=== PATIENT | male | born 1985 ===

== ENCOUNTER 2024-12-17 12:21 | Emergency (ER) | payer OTHER ==
[~2024-12-17] VITALS: Ht 182.9 cm; Wt 68.0 kg
== END 2024-12-17 14:39 | disposition home or self-care (01) ==
LOC: ER 12:21
DX: M25.512 Pain in left shoulder (principal); R19.7 Diarrhea, unspecified; Z53.21 Procedure and treatment not carried out due to patient leaving prior to being seen by health care provider
CPT/HCPCS: 99283

== ENCOUNTER 2024-12-18 19:14 | Emergency (ER) | payer OTHER ==
[~2024-12-18] VITALS: Ht 172.7 cm; Wt 77.1 kg
== END 2024-12-18 20:42 | disposition left against medical advice (07) ==
LOC: ER 19:14
DX: R10.31 Right lower quadrant pain (principal); Z53.21 Procedure and treatment not carried out due to patient leaving prior to being seen by health care provider
CPT/HCPCS: 99281

== ENCOUNTER 2024-12-28 02:16 | Emergency (ER) | payer OTHER ==
[~2024-12-28] VITALS: Ht 182.9 cm; Wt 83.9 kg
== END 2024-12-28 02:28 | disposition home or self-care (01) ==
LOC: ER 02:16
DX: R51.9 Headache, unspecified (principal); M54.9 Dorsalgia, unspecified; Z53.29 Procedure and treatment not carried out because of patient's decision for other reasons
CPT/HCPCS: 99282

== ENCOUNTER 2025-01-06 00:08 | Emergency (ER) | payer OTHER ==
[~2025-01-06] VITALS: Ht 182.9 cm; Wt 79.4 kg
== END 2025-01-06 01:33 | disposition home or self-care (01) ==
LOC: ER 00:08
DX: S39.012A Strain of muscle, fascia and tendon of lower back, initial encounter (principal); X58.XXXA Exposure to other specified factors, initial encounter
CPT/HCPCS: 99282

== ENCOUNTER 2025-02-01 00:43 | Emergency (ER) | payer OTHER ==
[~2025-02-01] VITALS: Ht 182.9 cm; Wt 72.6 kg
[2025-02-01] MEDS ORDERED: VOLTAREN ARTHRI20 GM PO (01:05)
[2025-02-01] MEDS ORDERED: Robaxin750 MG PO (01:05)
== END 2025-02-01 01:17 | disposition home or self-care (01) ==
LOC: ER 00:43
DX: S39.012A Strain of muscle, fascia and tendon of lower back, initial encounter (principal); X58.XXXA Exposure to other specified factors, initial encounter
CPT/HCPCS: 99283; A9270